=== PATIENT | male | born 1960 | race Caucasian/White ===

== ENCOUNTER 2022-10-02 11:11 | Emergency (ER) | payer OTHER ==
[~2022-10-02] VITALS: Ht 182.9 cm; Wt 99.8 kg
[~2022-10-02 11:11] MED LIST: DULERA 200 MCG/13 GM INH; FORTAMET1000 MG PO; GLYBURIDE2.5 MG PO; PROAIR HFA INH8.5 GM INH; SIMVASTATIN40 MG PO; SINGULAIR10 MG PO; SYNTHROID125 MCG PO; TOPROL XL25 MG PO
[2022-10-02] MEDS ORDERED: HEPARIN 25,000 UNIT/D5W 250ML 1,000 UNIT in DEXTROSE 5% 250ML 250 ML IV SCH (11:30)
[2022-10-02] MEDS ORDERED: NITROGLYCERIN 0.4 MG SUBL SL PRN (11:30)
[2022-10-02] MEDS ORDERED: HEPARIN SOD (PORCINE) 5,000 UNIT/ML VIAL IV ONE (11:30)
[2022-10-02] MEDS ORDERED: CLOPIDOGREL BISULFATE 75 MG TAB PO ONE (11:30)
[2022-10-02] MEDS ORDERED: ASPIRIN 325 MG TAB PO ONE (11:30)
[2022-10-02 11:35] LABS: BASOPHILS % 0.5 % (0.0-1.0); EOSINOPHILS # (AUTO) 0.2 (0.0-0.4); EOSINOPHILS % 2.5 % (0.0-6.0); HEMATOCRIT 36.8 % (38.2-49.6); HEMOGLOBIN 10.9 g/dL (14.0-18.0); LYMPHOCYTES # (AUTO) 2.7 (1.0-3.2); LYMPHOCYTES % 32.5 % (18.0-39.1); MEAN CORPUSCULAR HEMOGLOBIN 23.2 pg (28-32); MEAN CORPUSCULAR HGB CONC 29.6 g/dL (31-35); MEAN CORPUSCULAR VOLUME 78.3 fL (81-99); MONOCYTES # (AUTO) 0.8 (0.2-0.8); MONOCYTES % 9.8 % (4.4-11.3); NEUTROPHILS # (AUTO) 4.5 (2.1-6.9); NEUTROPHILS % 53.9 % (38.7-80.0); PLATELET COUNT 244 x10e3/uL (140-360); RED CELL DISTRIBUTION WIDTH 16.8 % (11.7-14.4)
[2022-10-02 11:46] LABS: ALBUMIN 3.9 g/dL (3.5-5.0); ALBUMIN/GLOBULIN RATIO 1.1 (0.8-2.0); ANION GAP 15.1 mmol/L (8-16); CALCIUM 9.4 mg/dL (8.4-10.2); CREATININE, SERUM 1.28 mg/dL (0.72-1.25); POTASSIUM 5.1 mmol/L (3.5-5.1)
[2022-10-02 11:55] LABS: INR 0.91; PROTHROMBIN TIME 12.8 seconds (11.9-14.5)
[2022-10-02 11:56] LABS: PARTIAL THROMBOPLASTIN TIME 29.4 seconds (23.8-35.5)
[2022-10-02] MEDS ORDERED: Morphine 4mg INJECTION 4 MG/ML INJ IV ONE (12:00)
[2022-10-02 12:33] VITALS: BP 144/92
== END 2022-10-02 12:25 | disposition other institution (70) ==
LOC: ER 11:16
DX: R07.9 Chest pain, unspecified (principal); I21.3 ST elevation (STEMI) myocardial infarction of unspecified site; I10 Essential (primary) hypertension; Z20.822 Contact with and (suspected) exposure to COVID-19; I25.2 Old myocardial infarction; Z95.1 Presence of aortocoronary bypass graft
CPT/HCPCS: 36415; 71045; 80053; 83880; 84484; 85025; 85610; 85730; 93005; 99284; J1644; J2270; U0002

== ENCOUNTER 2023-09-07 13:53 | Outpatient (RCR) | payer OTHER | END 2023-10-03 | LOC: RESP 13:53 | PROVIDERS: ATTEND Internal Medicine Critical Care Medicine | DX: J44.9 Chronic obstructive pulmonary disease, unspecified (principal); I25.10 Atherosclerotic heart disease of native coronary artery without angina pectoris | CPT/HCPCS: 94626 ×4; G0238 ×4 ==

== ENCOUNTER 2023-11-08 15:23 | Outpatient (RCR) | payer OTHER | END 2023-12-03 | LOC: RESP 15:23 | PROVIDERS: ATTEND Internal Medicine Critical Care Medicine | DX: R06.02 Shortness of breath (principal); J45.909 Unspecified asthma, uncomplicated; I70.8 Atherosclerosis of other arteries; J44.9 Chronic obstructive pulmonary disease, unspecified; I25.10 Atherosclerotic heart disease of native coronary artery without angina pectoris; Z98.890 Other specified postprocedural states | CPT/HCPCS: 94626 ×6; G0238 ×6 ==

== ENCOUNTER 2023-12-04 13:35 | Outpatient (RCR) | payer OTHER | END 2024-01-03 | LOC: RESP 13:35 | DX: R06.02 Shortness of breath (principal); J44.9 Chronic obstructive pulmonary disease, unspecified; J45.909 Unspecified asthma, uncomplicated; I70.8 Atherosclerosis of other arteries; I25.10 Atherosclerotic heart disease of native coronary artery without angina pectoris; Z98.890 Other specified postprocedural states | CPT/HCPCS: 94626; G0238 ==

== ENCOUNTER → 2023-12-26 | Outpatient (REF) | payer OTHER | LOC: RESP 08:52 → EDSTATUS 09:00 | PROVIDERS: ATTEND Nurse Practitioner Family | DX: R06.02 Shortness of breath (principal); J45.909 Unspecified asthma, uncomplicated; J44.9 Chronic obstructive pulmonary disease, unspecified; J32.8 Other chronic sinusitis; Z98.890 Other specified postprocedural states; Z87.891 Personal history of nicotine dependence | CPT/HCPCS: 94060; 94727; 94729 ==

== ENCOUNTER 2024-02-01 11:00 | Outpatient (RCR) | payer OTHER | END 2024-02-03 | LOC: RESP 11:00 | DX: R06.02 Shortness of breath (principal); J44.9 Chronic obstructive pulmonary disease, unspecified; I25.10 Atherosclerotic heart disease of native coronary artery without angina pectoris; J45.909 Unspecified asthma, uncomplicated; I70.8 Atherosclerosis of other arteries; Z98.890 Other specified postprocedural states | CPT/HCPCS: 94626 ×6; G0238 ×6 ==

== ENCOUNTER 2024-02-29 11:00 | Outpatient (RCR) | payer OTHER | END 2024-03-04 | LOC: RESP 11:00 | PROVIDERS: ATTEND Internal Medicine Critical Care Medicine | DX: J44.9 Chronic obstructive pulmonary disease, unspecified (principal) | CPT/HCPCS: 94626 ×5; G0238 ×5 ==

== ENCOUNTER 2024-03-28 11:00 | Outpatient (RCR) | payer OTHER | END 2024-04-04 | LOC: RESP 11:00 | PROVIDERS: ATTEND Internal Medicine Critical Care Medicine | DX: R06.02 Shortness of breath (principal); J44.9 Chronic obstructive pulmonary disease, unspecified; I25.10 Atherosclerotic heart disease of native coronary artery without angina pectoris; J45.909 Unspecified asthma, uncomplicated; I70.8 Atherosclerosis of other arteries; Z98.890 Other specified postprocedural states | CPT/HCPCS: 94626 ×5; G0238 ×5 ==

== ENCOUNTER 2024-04-25 11:00 | Outpatient (RCR) | payer OTHER | END 2024-05-04 | LOC: RESP 11:00 | PROVIDERS: ATTEND Internal Medicine Critical Care Medicine | DX: R06.02 Shortness of breath (principal); J45.909 Unspecified asthma, uncomplicated; I70.8 Atherosclerosis of other arteries; J44.9 Chronic obstructive pulmonary disease, unspecified; I25.10 Atherosclerotic heart disease of native coronary artery without angina pectoris; Z98.890 Other specified postprocedural states | CPT/HCPCS: 94626 ×3; G0238 ×3 ==

== ENCOUNTER 2024-09-03 23:08 | Emergency (ER) | payer OTHER ==
[~2024-09-03] VITALS: Ht 180.3 cm; Wt 81.6 kg
[2024-09-03 23:18] VITALS: PULSE 64; RESP 18; TEMP 98.2
[2024-09-04 01:13] VITALS: BP 113/74; O2SAT 99
== END 2024-09-04 01:11 | disposition home or self-care (01) ==
LOC: ER 23:11
DX: R23.3 Spontaneous ecchymoses (principal); S93.492A Sprain of other ligament of left ankle, initial encounter; X58.XXXA Exposure to other specified factors, initial encounter; I10 Essential (primary) hypertension; I25.2 Old myocardial infarction
CPT/HCPCS: 99283

== ENCOUNTER → 2025-01-23 | Outpatient (REF) | payer OTHER | LOC: EDSTATUS 10:00 → RESP 10:09 | PROVIDERS: ATTEND Nurse Practitioner Family | DX: J44.9 Chronic obstructive pulmonary disease, unspecified (principal); I50.9 Heart failure, unspecified; J45.909 Unspecified asthma, uncomplicated; R94.2 Abnormal results of pulmonary function studies | CPT/HCPCS: 94060; 94727; 94729 ==